=== PATIENT | female | born 1980 | race Caucasian/White ===

== ENCOUNTER 2023-08-17 06:17 | Day surgery (SDC) | payer OTHER ==
[~2023-08-17] VITALS: Ht 168.9 cm; Wt 73.2 kg
[~2023-08-17 06:17] MED LIST: FERR325T81 PO; TRAN650T PO
[2023-08-17] MEDS ORDERED: LR 1,000 ML IV SCH ×3 (06:25→10:05)
[2023-08-17 06:46] LABS: HEMATOCRIT 34.8 % (36.0-47.0); HEMOGLOBIN 10.5 g/dl (12.0-15.5); MEAN CORPUSCULAR HEMOGLOBIN 24.4 pg (27.0-33.0); MEAN CORPUSCULAR HGB CONC 30.2 g/dl (32.0-36.5); MEAN CORPUSCULAR VOLUME 80.7 fl (80.0-96.0); PLATELET COUNT, AUTOMATED 352 10^3/uL (150-450); RED BLOOD COUNT 4.31 10^6/uL (4.00-5.40); WHITE BLOOD COUNT 4.4 10^3/uL (4.0-10.0)
[2023-08-17] MEDS ORDERED: LIDOCAINE 2% 100MG/5ML SDV (FOR ANES.) As Ordered ONE (07:15)
[2023-08-17] MEDS ORDERED: ROCURONIUM BROMIDE 50MG/5ML VIAL As Ordered ONE (07:15)
[2023-08-17] MEDS ORDERED: MIDAZOLAM INJ 2MG/2ML VIAL As Ordered ONE (07:15)
[2023-08-17] MEDS ORDERED: propofoL 200 MG/20 ML VIAL As Ordered ONE (07:15)
[2023-08-17] MEDS ORDERED: fentaNYL 100 MCG/2 ML INJECTION As Ordered ONE (07:15)
[2023-08-17] MEDS ORDERED: ONDANSETRON 4MG 2ML VIAL As Ordered ONE (07:16)
[2023-08-17] MEDS ORDERED: KETOROLAC 60MG 2ML VIAL As Ordered ONE (07:16)
[2023-08-17] MEDS: ceFAZolin SOD 2 GM in IV 1 EA IV ONE (07:40)
[2023-08-17] MEDS ORDERED: ACETAMINOPHEN 1000MG 100ML IV BAG As Ordered ONE (08:02)
[2023-08-17] MEDS ORDERED: SUGAMMADEX SODIUM 500 MG/5 ML VIAL (BRIDION) As Ordered ONE (08:24)
[2023-08-17] MEDS ORDERED: ePHEDrine SULFATE 25 MG/5 ML(5MG/ML) SYRINGE As Ordered ONE (08:34)
[2023-08-17] MEDS ORDERED: HYDROmorphone HCL 2MG/ML 1ML VIAL As Ordered ONE (09:20)
[2023-08-17] MEDS ORDERED: fentaNYL 100 MCG/2 ML INJECTION IV PRN (09:30)
[2023-08-17] MEDS ORDERED: HYDROMORPHONE HCL 0.5 MG/ 0.5 ML SYRINGE IV PRN (09:30)
[2023-08-17] MEDS ORDERED: IBUP-1022 PO (09:37)
[2023-08-17] MEDS ORDERED: OXYC1TAB23 PO (09:37)
[2023-08-17] MEDS ORDERED: PERCOCET 5MG/325MG TAB PO PRN (10:00)
[2023-08-17] MEDS: oxyCODONE 5MG TAB PO PRN (10:02)
[2023-08-17] MEDS: ONDANSETRON 4MG 2ML VIAL IV PRN (10:58)
[2023-08-17] MEDS: METOCLOPRAMIDE INJ 10MG/2ML VIAL IV ONE (12:20)
[2023-08-17 14:10] VITALS: BP 127/74; TEMP 97.5; O2SAT 98
== END 2023-08-17 14:45 | disposition home or self-care (01) ==
LOC: M SDC 06:17
PROVIDERS: ATTEND Specialist
DX: D25.9 Leiomyoma of uterus, unspecified (principal); N92.0 Excessive and frequent menstruation with regular cycle; Z88.0 Allergy status to penicillin; Z79.899 Other long term (current) drug therapy
CPT/HCPCS: 36415; 58573; 81025; 85027; 86850; 86900; 86901; 88307; J0131; J0665; J0690; J1100; J1170; J1885; J2250; J2405; J2765; J3010; S2900